=== PATIENT | male | born 1940 | race Caucasian/White ===

== ENCOUNTER 2017-12-28 14:44 | Outpatient (CLI) | END 2017-12-28 14:45 | disposition short-term general hospital (02) | LOC: AMBL 14:44 | PROVIDERS: ATTEND Internal Medicine | DX: R06.9 Unspecified abnormalities of breathing (principal); F41.9 Anxiety disorder, unspecified; I49.1 Atrial premature depolarization ==

== ENCOUNTER 2018-02-20 19:25 | Outpatient (CLI) | END 2018-02-20 19:45 | disposition short-term general hospital (02) | LOC: AMBL 19:25 | PROVIDERS: ATTEND Internal Medicine Geriatric Medicine | DX: R60.0 Localized edema (principal); R06.02 Shortness of breath; J44.9 Chronic obstructive pulmonary disease, unspecified ==